=== PATIENT | male | born 2005 | race Two or more races ===

== ENCOUNTER 2023-06-01 11:46 | Emergency (ER) | payer BC ==
[~2023-06-01] VITALS: Ht 180.3 cm; Wt 61.7 kg
[2023-06-01] MEDS ORDERED: IV NS 0.9% 1,000 ML BAG IV ONE (12:30)
[2023-06-01 13:04] LABS: BASOPHILS % (AUTO) 0.2 % (0.0-2.0); EOSINOPHILS # (AUTO) 0.2 K/uL (0.0-0.7); EOSINOPHILS % (AUTO) 1.9 % (0.0-6.0); HEMATOCRIT 44 % (39-51); HEMOGLOBIN 14.6 g/dL (13.5-17.5); LYMPHOCYTES # (AUTO) 1.4 K/uL (0.8-4.8); LYMPHOCYTES % (AUTO) 14.3 % (20.0-44.0); MEAN CORPUSCULAR HEMOGLOBIN 29 PG (26.0-33.0); MEAN CORPUSCULAR HGB CONC 33 g/dl (31.0-36.0); MEAN CORPUSCULAR VOLUME 86 fL (80-96); MONOCYTES % (AUTO) 9.9 % (2.0-12.0); NEUTROPHILS # (AUTO) 7.1 K/uL (1.8-8.9); NEUTROPHILS % (AUTO) 73.7 % (43.0-81.0); PLATELET COUNT (AUTO) 241 K/uL (150-450); RED BLOOD CELL COUNT(AUTO) 5.11 MIL/uL (4.5-6.0); RED CELL DISTRIBUTION WIDTH 13.8 % (11.5-15.0); WHITE BLOOD COUNT (AUTO) 9.7 K/uL (4.3-11.0)
[2023-06-01 13:13] LABS: CALCIUM, SERUM 9.1 mg/dL (8.5-10.1); CREATININE 0.9 mg/dL (0.6-1.3)
[2023-06-01] MEDS ORDERED: IBUP-1953 PO (13:21)
[2023-06-01 13:35] VITALS: BP 123/71; TEMP 98; O2SAT 100
== END 2023-06-01 13:39 | disposition home or self-care (01) ==
LOC: ER 12:05
DX: S00.81XA Abrasion of other part of head, initial encounter (principal); R55 Syncope and collapse; J45.909 Unspecified asthma, uncomplicated; Z88.1 Allergy status to other antibiotic agents; W22.01XA Walked into wall, initial encounter; Y93.89 Activity, other specified; Y92.89 Other specified places as the place of occurrence of the external cause; Y99.8 Other external cause status
CPT/HCPCS: 99284; 70450; 96360; 93005; 70486; 85025; 80048; 36415; 80164; J7030

== ENCOUNTER 2023-12-03 17:54 | Emergency (ER) | payer BC, MEDICAID ==
[~2023-12-03] VITALS: Ht 175.3 cm; Wt 66.2 kg
[~2023-12-03 17:54] MED LIST: IBUP-1953 PO
[2023-12-03 18:25] VITALS: BP 140/74; TEMP 98.6
[2023-12-03 19:30] VITALS: O2SAT 99
== END 2023-12-03 19:55 | disposition home or self-care (01) ==
LOC: ER 18:00
DX: L73.9 Follicular disorder, unspecified (principal); J45.909 Unspecified asthma, uncomplicated; Z88.8 Allergy status to other drugs, medicaments and biological substances; Z91.018 Allergy to other foods